=== PATIENT | female | born 1990 | race Caucasian/White ===

== ENCOUNTER 2020-12-10 19:26 | Inpatient (IN) ==
[2020-12-10] MEDS ORDERED: OXYTOCIN 30 UNITS/500 ML BAG IV PRN (19:56)
[2020-12-10] MEDS ORDERED: DEXTROSE 50% 50 ML SYRINGE IV PRN (19:56)
[2020-12-10] MEDS ORDERED: INSULIN REGULAR 250 UNITS in SODIUM CHLORIDE 0.9% 247.5 ML IV PRN (19:56)
[2020-12-10] MEDS ORDERED: LACTATED RINGER'S 1,000 ML IV PRN (19:56)
[2020-12-10] MEDS ORDERED: SODIUM CHLORIDE 0.9% 1000ML 1,000 ML IV PRN (19:56)
[2020-12-10] MEDS ORDERED: PENICILLIN G POTASSIUM 6 MU in DEXTROSE 5% 250 ML IV STA (20:05)
--- NOTE | 2020-12-10 20:15 | Labor Progress Brief Note ---
Date of Service December 10, 2020 Subjective Patient arrives for IOL due to mild preeclampsia. Diagnosed based on outpatient 24hr urine protein resulted today at 702mg, along with cHTN, plus new onset epigastric pain per patient in office yesterday. While diagnosis is not classic since she did not have a hypertensive BP measurement in the office yesterday, it is the best unifying theory for her picture of cHTN + proteinuria + symptoms at this time. She was also already indicated for delivery between 38 and 38 10/25 based on her cHTN diagnosis. Had been scheduled at 38 09/24, but will now proceed at 38 05/27 given the new issues. On arrival she has no PIH sx, no LOF, no VB, good FM, no CTX. Assessment & Plan (1) Mild preeclampsia: Plan: Admit for IOL. Will start with mihaela solis/arom in AM (2) Gestational diabetes mellitus (GDM) affecting , antepartum: Plan: On insulin at home. Initiate protocol with drips of D5 and insulin per hourly sugars. (3) Group B streptococcal carriage complicating : Plan: PCN once pitocin started or ROM occurs. Admission and Anticipated Discharge Date Admission Date: December 10, 2020 Physical Exam Physical Exam: 2/50/-2/soft/post Vtx/intact FHT Cat 1 Eek quiet to irritable Results & Data ([facility]) Vital Signs (Past 12 Hours) Vital Signs Pulse BP 12/10/20 20:04 112 H 152/82 H 12/10/20 20:03 113 H 178/77 H Coding Level of Care Code None Diagnoses Mild preeclampsia O14.00 Gestational diabetes mellitus (GDM) affecting , antepartum O24.419 Group B streptococcal carriage complicating O99.820
[2020-12-10 20:28] LABS: Hematocrit (blood only) 36.7 % (37-47); Hemoglobin 12.6 g/dL (12.0-16.0); Mean Corpuscular Hemoglobin 29.6 pg (25-34); Mean Corpuscular Hgb Conc 34.3 g/dL (32-36); Mean Corpuscular Volume 86.4 fL (80-100); Mean Platelet Volume 10.7 fL (7.4-10.4); Platelet Count 211 K/uL (130-400); RDW Coefficient of Variation 14.1 % (11.5-14.5); RDW Standard Deviation 44.3 fL (36.4-46.3); Red Blood Count 4.25 M/uL (4.2-5.4); White Blood Count 11.72 K/uL (4.8-10.8)
--- NOTE | 2020-12-10 21:41 | Procedure Note ---
Procedure Note Date of Service December 10, 2020 Note Patient was placed in L&D bed and a reactive NST was obtained. The solis bulb placement process was explained to the patient and all questions answered to her satisfaction. She was positioned in lithotomy, and a solis was prepared with a lubricated stylet and a syringe of 30cc sterile water. A gloved hand was used to identify and examine the cervix which was found to be 2/75/-2. The catheter was advanced to a point just outside the internal os, then the solis was slid forward off of the stylet and into the uterine cavity outside the amniotic sac. The stylet was removed, and the solis balloon was inflated to 30cc. The solis w as gently seated downward against the internal cervical os and clamped. The heart tones remained cat 1. Coding CPT Codes Misx Procedure Codes - 23558 Placement of cervical dilator: 66181 Placement of cervical dilator ([id number]) [facility] [place] ([place] Misx Procedure Codes 24355 Placement of cervical dilator
[2020-12-10] MEDS: ACETAMINOPHEN 325 MG TAB PO PRN (22:15)
[2020-12-10] MEDS: DEXTROSE 5% 1,000 ML IV PRN (22:35)
[2020-12-11] MEDS ORDERED: OXYTOCIN 30 UNITS/500 ML BAG IV PRN ×2 (03:42→15:21)
[2020-12-11] MEDS: ACETAMINOPHEN 325 MG TAB PO PRN ×3 (05:00→21:30)
--- NOTE | 2020-12-11 05:42 | Labor Progress Brief Note ---
Date of Service December 11, 2020 Subjective Discomfort with contractions, not wanting epidural yet but informs us she plans one. Assessment & Plan (1) Mild preeclampsia: (2) Group B streptococcal carriage complicating : (3) Insulin controlled gestational diabetes mellitus (GDM) during : Admission and Anticipated Discharge Date Admission Date: December 10, 2020 Physical Exam Physical Exam: FHT Cat 1 [place] q3-4 3/75/-2/vtx/intact Pit @ 1 Mendoza out Results & Data ([place]) Vital Signs (Past 12 Hours) Vital Signs Temp Pulse Resp BP 12/11/20 04:57 102 H 152/70 H 12/11/20 03:43 96 H 141/67 H 12/11/20 02:50 97.9 F 18 12/11/20 02:44 84 139/76 12/11/20 01:48 97 H 142/79 H 12/11/20 00:45 100 H 143/72 H 12/10/20 23:49 107 H 143/74 H 12/10/20 23:00 18 12/10/20 22:48 98.2 F 12/10/20 22:42 107 H 145/87 H 12/10/20 21:46 105 H 151/78 H 12/10/20 20:48 115 H 111/78 12/10/20 20:04 112 H 152/82 H 12/10/20 20:03 113 H 178/77 H 12/10/20 19:47 98.6 F 18 Coding Level of Care Code None Diagnoses Mild preeclampsia O14.00 Group B streptococcal carriage complicating O99.820 Insulin controlled gestational diabetes mellitus (GDM) during O24.414
[2020-12-11] MEDS: PENICILLIN G POTASSIUM 3 MU in DEXTROSE 5% 100 ML IV PRN ×2 (08:20→12:32)
[2020-12-11] MEDS ORDERED: fentaNYL 2MCG/ML ROPIVACAINE 1.25MG/ML 100 ML BAG EPI ONE (08:45)
[2020-12-11] MEDS ORDERED: fentaNYL citrate 100 MCG/2 ML VIAL ONE (08:45)
[2020-12-11] MEDS ORDERED: BUPIVACAINE 0.25% 30 ML VIAL ONE (08:45)
[2020-12-11] MEDS ORDERED: SODIUM CHLORIDE 0.9% INJ 10 ML VIAL ONE (08:45)
[2020-12-11] MEDS ORDERED: ePHEDrine sulfate 50 MG/ML AMP ONE (08:45)
--- NOTE | 2020-12-11 09:30 | Anesthesiology Consultation ---
Date of Service December 11, 2020 Assessment & Plan Chart Review Chart Review: Acceptable Risk for Labor Epidural Consults Requested none History Height/Weight Height: 5 ft 3 in Weight: 121.563 kg Allergies Allergy/AdvReac Type Severity Reaction Status Date / Time No Known Allergies Allergy Verified 12/06/20 09:26 Medications Home Medications Medication Instructions Recorded Confirmed Last Taken prenat.vits,michael,roo-jkup-keihe 1 tab PO DAILY 06/10/20 12/10/20 12/10/20 aspirin 81 mg chewable tablet 81 mg PO DAILY 07/05/20 12/10/20 12/10/20 acetone (urine) test (Ketone Urine #50 ea 08/06/20 12/06/20 Unknown Test) blood sugar diagnostic (OneTouch #150 ea 08/06/20 12/06/20 Unknown Verio test strips) blood-glucose meter (OneTouch #1 ea 08/06/20 12/06/20 Unknown Verio Flex meter) lancets 33 gauge (OneTouch Delica #150 ea 08/06/20 12/06/20 Unknown Plus Lancet) pen needle, diabetic 32 gauge x #50 ea 10/25/20 12/06/20 Unknown 32" (BD Ultra-Fine Liberty Pen Needle) insulin NPH isoph U-100 human 100 65 unit SUBCUT QPM #30 ml 11/30/20 12/10/20 12/09/20 22:00 unit/mL (3 mL) subcutaneous pen (Novolin N Flexpen) breast pump #1 ea 12/10/20 Unknown Active Medications Generic Name Dose Route Start Last Admin Trade Name Freq PRN Reason Stop Dose Admin Acetaminophen 650 mg 12/10/20 21:41 12/11/20 05:00 Acetaminophen 325 Mg Tab PO 01/09/21 21:40 650 mg Q4H PRN Administration Mild Pain Penicillin G Potassium 3 mu/ 106 mls @ 100 mls/hr 12/10/20 19:56 12/11/20 08:20 Dextrose IV 12/20/20 19:55 100 mls/hr Q4H PRN Administration Give until delivery Insulin Human Regular 250 250 mls @ 0.5 mls/hr 12/10/20 19:56 12/11/20 08:40 units/ Sodium Chloride IV 01/09/21 19:55 0.5 units/hr Q24H PRN 0.5 mls/hr BSG 80mg/dL or above Titration Protocol 0.5 UNITS/HR Dextrose 1,000 mls @ 100 mls/hr 12/10/20 19:56 12/11/20 08:40 D5w IV 01/09/21 19:55 100 mls/hr .Q10H PRN Infusion BSG 180 or below Protocol Lactated Ringer's 1,000 mls @ 125 mls/hr 12/10/20 19:56 12/11/20 08:33 Lr IV 12/12/20 19:55 0 mls/hr .Q8H PRN Infusion L&D Protocol Protocol Oxytocin 30 units in 500 mls @ 11 mls/hr 12/11/20 03:42 12/11/20 08:30 Pitocin IV 12/13/20 03:41 0.66 units/hr .Q24H PRN 11 mls/hr Labor Induction/Augmentation Titration Protocol 0.66 UNITS/HR Past Medical History Medical History (Updated 12/11/20 @ 00:30 by Joselyn Flaherty, ASIA) Spontaneous vaginal delivery [facility] 02/2016, PP HTN with this was taking Labetalol Past Family History Family History Mother Hypertension Past Surgical History Surgical History (Updated 12/11/20 @ 00:30 by Joselyn Flaherty, ASIA) S/P dilation and curettage 08/2017 S/P wisdom tooth extraction Social History Smoking Status: Never smoker Hx Alcohol Use: No Hx Substance Use: No Physical Exam Vital Signs Last Vital Signs Temp 36.6 C 12/11/20 07:09 Pulse 116 H 12/11/20 09:28 Resp 20 12/11/20 08:03 BP 142/80 H 12/11/20 09:25 Pulse Ox 98 12/11/20 09:28 Testing Laboratory Results 12/10/20 20:16 12/11/20 12/11/20 12/11/20 08:39 07:40 06:41 POC Glucose 100 H 100 H 103 H 12/11/20 12/11/20 12/11/20 05:41 04:40 03:41 POC Glucose 119 H 117 H 96 12/11/20 12/11/20 12/11/20 02:43 01:42 00:43 POC Glucose 96 97 103 H 12/10/20 12/10/20 23:42 22:33 POC Glucose 112 H 124 H
[2020-12-11] MEDS ORDERED: NALOXONE HCL 0.4 MG/1 ML VIAL/CARP IV PRN (09:45)
[2020-12-11] MEDS ORDERED: fentaNYL 2MCG/ML ROPIVACAINE 1.25MG/ML 100 ML BAG EPI PRN (09:45)
[2020-12-11] MEDS ORDERED: diphenhydrAMINE 50 MG/ML VIAL IV PRN (09:45)
[2020-12-11] MEDS ORDERED: ePHEDrine sulfate 50 MG/ML AMP IV PRN (09:45)
[2020-12-11] MEDS ORDERED: NALBUPHINE HCL INJ 10 MG/ML AMP IV PRN (09:45)
[2020-12-11] MEDS ORDERED: NALOXONE HCL 1 MG in SODIUM CHLORIDE 0.9% 1000ML 1,000 ML IV PRN (09:45)
[2020-12-11] MEDS: DEXTROSE 5% 1,000 ML IV PRN (09:59)
[2020-12-11] MEDS ORDERED: ONDANSETRON INJ 2 MG/ML 2 ML VIAL ONE (10:30)
--- NOTE | 2020-12-11 14:56 | Delivery Summary ---
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 8:30 in the morning the patient soon afterwards requested epidural after this and she had received 4 hours worth of antibiotics for group B strep prophylaxis the patient's membranes were ruptured artificially patient then progressed to fully dilated and pushed over a total of 1 contractions delivering baby in occiput anterior position loose nuchal cord passed over the head fluid was clear mouth and then nares suctioned with bulb no excessive force was used easy delivery live male vigorous infant cord clamped and cut cord gases obtained cord blood obtained placenta removed with gentle traction IV Pitocin was started small fir st-degree tear repaired with 3-0 Vicryl sponge and instrument counts were correct estimated blood loss 250 mL [facility] Vaginal Delivery Charge Vaginal Delivery Codes: 95130 global code for the antepartum, delivery, and post- Delivery Type Details: and 1st Degree LAC Procedure Anesthesia type: Epidural
[2020-12-11 15:21] LABS: Base Excess Cord Venous Blood -1.7 mEq/L (-7.7-1.9); Cord Venous Blood HCO3 24 mmol/L (18.4-26.8); Cord Venous Blood PCO2 42 mmHg (30.4-57.2); Cord Venous Blood PO2 30 mmHg (14.1-43.3); Cord Venous Blood pH 7.37 (7.20-7.44)
[2020-12-11] MEDS ORDERED: HYDROCORTISONE ACETATE 25 MG SUPP PR PRN (15:21)
[2020-12-11] MEDS ORDERED: BENZOCAINE 20% AER SPR 82.5 GM CAN EXT PRN (15:21)
[2020-12-11] MEDS ORDERED: DIPHTHERIA/TETANUS/PERTUSSIS 0.5 ML SYR/VIAL IM ONE (15:21)
[2020-12-11] MEDS ORDERED: bisacodyL 10 MG SUPP PR PRN (15:21)
[2020-12-11] MEDS ORDERED: oxyCODONE/ACETAMINOPHEN 5mg/325mg TAB PO PRN (15:21)
[2020-12-11] MEDS ORDERED: SUPERCREAM 0.870% 15 GM JAR EXT PRN (15:21)
[2020-12-11 15:26] LABS: Base Excess Cord Arterial Bld -0.1 mEq/L (-9-1.8); CO2 Cord Arterial Blood 60 mmHg (39.1-73.5); HCO3 Cord Arterial Blood 28 mmol/L (19.7-28.5); PO2 Cord Arterial Blood 11 mmHg (4.1-31.7); pH Cord Arterial Blood 7.29 (7.1-7.38)
[2020-12-11 15:32] LABS: Oxygen Sat Cord Arterial Blood < 60.0 % (<60)
--- NOTE | 2020-12-11 15:36 | Anesthesia Procedure Note ---
Date of Service December 11, 2020 Anesthesia Post Epidural Note Vital Signs Vital Signs: Temp Pulse Resp BP Pulse Ox 36.6 C 110 H 20 150/80 H 99 12/11/20 07:09 12/11/20 15:33 12/11/20 11:03 12/11/20 15:33 12/11/20 14:43 Pain Intensity Bilateral Abdomen: Pain Intensity: 0 Notes Mental Status: alert / awake / arousable Nausea / Vomiting: adequately controlled Pain: adequately controlled Airway Patency, RR, SpO2: stable & adequate BP & HR: stable & adequate Hydration State: stable & adequate Neuraxial Anesthesia: was administered and sensory block is resolving Anesthetic Complications: no major complications apparent and Pt Satisfied with anesthetic care Epidural: Removed without complications and With tip intact
[2020-12-11] MEDS: IBUPROFEN 600 MG TAB PO PRN ×2 (18:24→22:29)
[2020-12-11] MEDS: DOCUSATE SODIUM 100 MG CAP PO SCH (21:30)
[2020-12-12] MEDS ORDERED: PRENATAL VITAMIN 1 TAB PO SCH (08:00)
--- NOTE | 2020-12-12 08:27 | Obstetrical Progress Note ---
Date of Service December 12, 2020 Assessment & Plan (1) Insulin controlled gestational diabetes mellitus (GDM) during : PPD # 1 cont current care Subjective Ambulation: ambulating normally Voiding: no voiding problems Passing Gas:: Yes Diet Tolerance:: regular diet Lochia:: Small Physical Exam ext neg Results & Data ([facility]) Vital Signs (Past 12 Hours) Vital Signs Temp Pulse Resp BP Pulse Ox 12/12/20 02:30 97.9 F 94 H 18 140/94 12/11/20 23:15 97.7 F 94 H 18 121/71 96
[2020-12-12] MEDS: DOCUSATE SODIUM 100 MG CAP PO SCH (08:51)
[2020-12-12] MEDS: IBUPROFEN 600 MG TAB PO PRN ×2 (08:51→12:40)
[2020-12-12] MEDS ORDERED: bisacodyL 5 MG TABEC PO SCH (20:00)
== END 2020-12-12 15:30 | disposition home or self-care (01) | DRG 807 ==
LOC: 4S1 19:26 → 4S2 12-11 17:25

== ENCOUNTER 2022-05-04 07:26 | Inpatient (IN) ==
[2022-05-04] MEDS ORDERED: OXYTOCIN 30 UNITS/500 ML BAG IV PRN ×3 (07:35→18:32)
[2022-05-04] MEDS ORDERED: LIDOCAINE 1% LOCAL 20 ML VIAL INFIL PRN (07:35)
[2022-05-04] MEDS ORDERED: PENICILLIN G POTASSIUM 6 MU in DEXTROSE 5% 250 ML IV ONE (07:45)
[2022-05-04] MEDS: LACTATED RINGER'S 1,000 ML IV PRN ×3 (08:13→16:38)
[2022-05-04 09:04] LABS: Hematocrit (blood only) 34.8 % (34.1-44.9); Hemoglobin 11.8 g/dl (12.0-16.0); Mean Corpuscular Hemoglobin 29.9 pg (25.0-34.0); Mean Corpuscular Hgb Conc 33.9 g/dL (32.0-36.0); Mean Corpuscular Volume 88.3 fL (80.0-100.0); Mean Platelet Volume 10.2 fL (9.4-12.3); Platelet Count 206 K/uL (130-400); RDW Coefficient of Variation 14.6 % (11.5-14.5); RDW Standard Deviation 45.7 fL (36.4-46.3); Red Blood Count 3.94 M/uL (3.93-5.22); White Blood Count 11.19 K/ul (4.8-10.8)
--- NOTE | 2022-05-04 09:44 | History & Physical Report ---
Date of Service May 04, 2022 Assessment & Plan (1) Insulin controlled gestational diabetes mellitus (GDM) during : (2) GBS (group B Streptococcus carrier), +RV culture, currently : Plan 31 yo at 39 1/7 wga presents for IOL for A2GDM VSS Fetus cat 1 Labor - will start pit. Discussed suspected macrosomia but not projected out to >4500g. Discussed potential impact on labor and pushing curves, would need to be judicious w/ vacuum if considering due to risk of shoulder and pt verbalized understanding A2GDM - initial BG elevated due to waffle, repeat 1hr later improved. Will ocntinue to monitor GBS+, pcn ordered epidural prn Admission and Anticipated Discharge Date Admission Date: May 04, 2022 History of Present Illness Chief Complaint: IOL Primary Care Provider: NO PCP 31 yo at 39 1/7 wga presents for IOL for A2GDM. 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: G1 2015 at 42 wks G2 2019 SAB G3 2020 at 38 wks G4 current q28-30d cycles denies hx STIs 01/2021 neg cyto Allergies Allergy/AdvReac Type Severity Reaction Status Date / Time No Known Allergies Allergy Verified 05/03/22 14:04 Home Medications Medication Instructions Recorded Confirmed Type prenat.vits,michael,jdx-wcew-htahs 1 tab PO DAILY 06/10/20 05/03/22 History acetone (urine) test (Ketone Urine #50 ea 10/28/21 05/03/22 Rx Test strips) blood sugar diagnostic (OneTouch #150 ea 10/28/21 05/03/22 Rx Verio test strips) lancets 33 gauge (OneTouch Delica #150 ea 10/28/21 05/03/22 Rx Plus Lancet) pen needle, diabetic 32 gauge x #100 ea 12/28/21 05/03/22 Rx 5/32" (BD Ultra-Fine Liberty Pen Needle) insulin syringe-needle U-100 1 mL #50 ea 01/26/22 05/03/22 Rx 32 gauge x 5/16" (True Comfort Pro Ins Syringe) aspirin 81 mg tablet,delayed 81 mg PO DAILY 03/29/22 05/03/22 History release (Adult Low Dose Aspirin) docusate sodium [Colace] PO 03/29/22 05/03/22 History insulin NPH isoph U-100 human 100 180 unit subcut QPM 05/04/22 05/04/22 History unit/mL subcutaneous suspension (Novolin N NPH U-100 Insulin isophane) Patient History Medical History (Updated 05/04/22 @ 09:10 by Delvin Dean MD) Gestational diabetes Gestational proteinuria History of chicken pox Mild preeclampsia Obesity Spontaneous vaginal delivery [facility] 02/2016, PP HTN with this was taking Labetalol Surgical History History of cryosurgery S/P dilation and curettage 08/2017 S/P wisdom tooth extraction Family History (Updated 09/14/21 @ 14:11 by Evangelina Fournier) Mother Hypertension Thyroid disease Grandmother (Paternal) Breast cancer Grandmother (Maternal) Diabetes Heart disease Rheumatoid arthritis Denies family history of Ovarian cancer Colorectal cancer Social History (Updated 09/14/21 @ 14:12 by Evangelina Fournier) Smoking Status: Never smoker Hx Alcohol Use: No Hx Substance Use: No Preferred Language: Dutch Communication Ability: Effective Job Foreman Required: No Beliefs That Will Affect Care: None marital status: marital status details: DICK Blue (30) [phone] Current Living Situation: Spouse and Family Current Living Situation Comment: house with dick with son and step daughter, no pets current occupational status: employed 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 @ [employer] Feels Safe at Home: Yes Safety Concerns: Feels Safe At This Time Assistive Devices: None Physical Exam Genitourinary: OB Exam Abdomen: + vertex and + estimated weight (8-9) Manual OB Exam: + cervical dilation (2-3), + cervical effacement 50% and + station -2 OB Exam Monitor Tracing: + external FHT monitor used, + external uterine monitor used (irritability) and + category I (150/mod/+accel/-decel) Results & Data ([facility]) Vital Signs (Past 12 Hours) Vital Signs Temp Resp 05/04/22 07:30 98.8 F 18 Laboratory Results OB Labs: Blood Type A Positive 09/21/21 Antibody Screen NEGATIVE 09/21/21 Hemoglobin 12.9 g/dl (12.0-16.0) 02/15/22 Hematocrit 36.6 % (34.1-44.9) 02/15/22 Mean Corpuscular Volume 89.6 fL (80-100) 09/21/21 Platelet Count 295 K/uL (130-400) 09/21/21 Rubella IgG Antibody Immune (Immune) 09/21/21 Rapid Plasma Reagin Nonreactive (Nonreactive) 09/21/21 Hepatitis B Surface Antigen Neg (Neg) 06/17/20 Hepatitis B Surface Antigen. NON-REACTIVE (NON-REACTIVE) 09/21/21 Hepatitis C Antibody (EIA) NON-REACTIVE (NON-REACTIVE) 09/21/21 HIV (1&2) Ab and P24 Ag, 4th Gener Neg (Neg) 06/17/20 HIV (1&2) Ag and Ab Confirmation NON-REACTIVE (NON-REACTIVE) 09/21/21 Glucose 1 Hour 50 gm Load 134 mg/dl (70-130) H 07/05/20 OB Optional Labs: Chlamydia trachomatis RNA NOT DETECTED (NOT DETECTED) 09/21/21 Neisseria gonorrhoeae RNA NOT DETECTED (NOT DETECTED) 09/21/21 Thyroid Stimulating Hormone (TSH) 1.150 uIu/ml (0.300-4.500) 08/06/20 Labs Reviewed: declines quad/afp - sln GBS+ Diagnostic Findings 04/12 EFW 3416g, 95%, post plac Coding Level of Care Code None Diagnoses Insulin controlled gestational diabetes mellitus (GDM) during O24.414 GBS (group B Streptococcus carrier), +RV culture, currently O99.820
[2022-05-04] MEDS ORDERED: ePHEDrine sulfate 50 MG/ML AMP ONE (11:56)
[2022-05-04] MEDS ORDERED: fentaNYL citrate 100 MCG/2 ML VIAL ONE (11:56)
[2022-05-04] MEDS ORDERED: LIDOCAINE 2%/EPINEPHRINE 1:200,000 20 ML SDV ONE (11:57)
[2022-05-04] MEDS ORDERED: BUPIVACAINE 0.25% 30 ML VIAL ONE (11:57)
[2022-05-04] MEDS ORDERED: SODIUM CHLORIDE 0.9% INJ 10 ML VIAL ONE (11:57)
[2022-05-04] MEDS ORDERED: fentaNYL 2MCG/ML ROPIVACAINE 1.25MG/ML 100 ML BAG EPI ONE (11:57)
[2022-05-04] MEDS: PENICILLIN G POTASSIUM 3 MU in DEXTROSE 5% 100 ML IV PRN ×2 (12:03→17:13)
[2022-05-04] MEDS ORDERED: ePHEDrine sulfate 50 MG/ML AMP IV PRN (12:24)
[2022-05-04] MEDS ORDERED: ONDANSETRON INJ 2 MG/ML 2 ML VIAL IV PRN (12:24)
[2022-05-04] MEDS ORDERED: NALOXONE HCL 1 MG in SODIUM CHLORIDE 0.9% 1000ML 1,000 ML IV PRN (12:24)
[2022-05-04] MEDS ORDERED: diphenhydrAMINE 50 MG/ML VIAL IV PRN (12:24)
[2022-05-04] MEDS ORDERED: NALOXONE HCL 0.4 MG/1 ML VIAL/CARP IV PRN (12:24)
[2022-05-04] MEDS ORDERED: fentaNYL 2MCG/ML ROPIVACAINE 1.25MG/ML 100 ML BAG EPI PRN (12:24)
[2022-05-04] MEDS ORDERED: NALBUPHINE HCL INJ 10 MG/ML AMP IV PRN (12:24)
--- NOTE | 2022-05-04 12:27 | Anesthesiology Consultation ---
Date of Service May 04, 2022 Assessment & Plan Chart Review Chart Review: Patient NOT seen in Pre Admission Testing and Acceptable Risk for Labor Epidural Consults Requested none ASA ASA3 Proposed Anesthesia Anesthesia Type: Labor Epidural and CSE Risk / Benefits Reviewed With: PT / POA / Parent / Guardian, Accepts Plan and Informed Consent Obtained History Height/Weight Height: 5 ft 3 in Weight: 115.666 kg Allergies Allergy/AdvReac Type Severity Reaction Status Date / Time No Known Allergies Allergy Verified 05/03/22 14:04 Medications Home Medications Medication Instructions Recorded Confirmed Last Taken prenat.vits,michael,uxt-nrof-plkcr 1 tab PO DAILY 06/10/20 05/03/22 12/10/20 acetone (urine) test (Ketone Urine #50 ea 10/28/21 05/03/22 Unknown Test strips) blood sugar diagnostic (OneTouch #150 ea 10/28/21 05/03/22 Unknown Verio test strips) lancets 33 gauge (OneTouch Delica #150 ea 10/28/21 05/03/22 Unknown Plus Lancet) pen needle, diabetic 32 gauge x #100 ea 12/28/21 05/03/22 Unknown 5/32" (BD Ultra-Fine Liberty Pen Needle) insulin syringe-needle U-100 1 mL #50 ea 01/26/22 05/03/22 Unknown 32 gauge x 5/16" (True Comfort Pro Ins Syringe) aspirin 81 mg tablet,delayed 81 mg PO DAILY 03/29/22 05/03/22 1 Day Ago release (Adult Low Dose Aspirin) ~05/03/22 docusate sodium [Colace] PO 03/29/22 05/03/22 1 Day Ago ~05/03/22 insulin NPH isoph U-100 human 100 180 unit subcut QPM 05/04/22 05/04/22 1 Day Ago unit/mL subcutaneous suspension ~05/03/22 (Novolin N NPH U-100 Insulin isophane) Active Medications Generic Name Dose Route Start Last Admin Trade Name Freq PRN Reason Stop Dose Admin Lactated Ringer's 1,000 mls @ 125 mls/hr 05/04/22 07:35 05/04/22 12:26 Lr IV 05/06/22 07:34 500 mls/hr .Q8H PRN Administration L&D Protocol Protocol Penicillin G Potassium 3 mu/ 106 mls @ 100 mls/hr 05/04/22 10:35 05/04/22 12:03 Dextrose IV 05/14/22 10:34 100 mls/hr Q4H PRN Administration GBS(+) Until Delivery Oxytocin 30 units in 500 mls @ 8 mls/hr 05/04/22 07:46 05/04/22 11:16 Pitocin IV 05/06/22 07:45 0.48 units/hr .Q24H PRN 8 mls/hr Labor Induction/Augmentation Titration Protocol 0.48 UNITS/HR NPO Date Last Intake of Fluids: 05/04/22 Time Last Intake of Fluids: 10:00 Date Last Intake of Solids: 05/04/22 Time Last Intake of Solids: 07:00 Past Medical History Medical History Gestational diabetes Gestational proteinuria History of chicken pox Mild preeclampsia Obesity Spontaneous vaginal delivery [facility] 02/2016, PP HTN with this was taking Labetalol Exercise / Class Metabolic Activity II 4-5 Yardwork/Stairs/Walk up hill Past Family History Family History Mother Hypertension Thyroid disease Grandmother (Paternal) Breast cancer Grandmother (Maternal) Diabetes Heart disease Rheumatoid arthritis Denies family history of Ovarian cancer Colorectal cancer Past Surgical History Surgical History History of cryosurgery S/P dilation and curettage 08/2017 S/P wisdom tooth extraction Past Anesthesia History No Hx of Anesthesia Complications and No Family Hx of Anesthesia Complications History of PONV No Hx of PONV and No Hx of Motion Sickness Social History Smoking Status: Never smoker Hx Alcohol Use: No Hx Substance Use: No Review of Systems no chest pain or sob Physical Exam Vital Signs Last Vital Signs Temp 37.1 C 05/04/22 07:30 Pulse 103 H 05/04/22 12:22 Resp 18 05/04/22 07:30 BP 130/65 05/04/22 12:10 Pulse Ox 100 05/04/22 12:22 ENMT Mouth: no TMJ abnormality Thyromental Distance: > or= 3.5 Finger Breadths Mallampati Class: II Neck normal visual inspection Respiratory normal respiratory effort Auscultation: lungs clear to auscultation bilaterally Cardiovascular Rate/Rhythm: regular rate and regular rhythm Musculoskeletal Spine: normal cervical ROM Neurologic moves all extremities Psychiatric Orientation: alert and oriented x 3 Testing Laboratory Results 05/04/22 08:44 05/04/22 05/04/22 05/04/22 12:08 11:04 10:02 POC Glucose 77 78 109 H 05/04/22 05/04/22 09:06 07:51 POC Glucose 164 H 196 H
--- NOTE | 2022-05-04 13:40 | Labor Progress Brief Note ---
Date of Service May 04, 2022 Subjective Comfortable w/ epidural Assessment & Plan (1) Insulin controlled gestational diabetes mellitus (GDM) during : (2) GBS (group B Streptococcus carrier), +RV culture, currently : Plan 31 yo at 39 1/7 wga presents for IOL for A2GDM VSS Fetus cat 1 Labor - pit at 14, now s/p arom. Small fluid seen, will recheck and make sure all membranes ruptured on next check A2GDM - BG wnl GBS+, pcn ordered epidural in place Admission and Anticipated Discharge Date Admission Date: May 04, 2022 Physical Exam Genitourinary: Manual OB Exam: + cervical dilation (3-4), + cervical effacement 50%, + station -2 and + amniotic fluid (attempted arom but difficult, believe to have gotten it w/ clear fluid) OB Exam Monitor Tracing: + external FHT monitor used, + external uterine monitor used (irritability) and + category I (140-145/mod/+accel/-decel) Results & Data ([facility]) Vital Signs (Past 12 Hours) Vital Signs Temp Pulse Resp BP Pulse Ox 05/04/22 13:33 104 H 129/70 05/04/22 13:18 112 H 137/79 05/04/22 13:04 111 H 132/82 05/04/22 12:47 100 05/04/22 12:47 104 H 05/04/22 12:47 108 H 135/67 05/04/22 12:45 107 H 140/67 05/04/22 12:42 98 H 100 05/04/22 12:43 100 H 146/75 H 05/04/22 12:41 95 H 135/104 H 05/04/22 12:39 113 H 137/95 05/04/22 12:37 117 H 100 05/04/22 12:32 102 H 100 05/04/22 12:31 104 H 160/96 H 05/04/22 12:27 104 H 100 05/04/22 12:22 103 H 100 05/04/22 12:10 101 H 130/65 05/04/22 10:46 102 H 140/89 05/04/22 07:30 98.8 F 18 Coding Level of Care Code None Diagnoses Insulin controlled gestational diabetes mellitus (GDM) during O24.414 GBS (group B Streptococcus carrier), +RV culture, currently O99.820
--- NOTE | 2022-05-04 15:42 | Labor Progress Brief Note ---
Date of Service May 04, 2022 Subjective Comfortable w/ epidural Assessment & Plan (1) Insulin controlled gestational diabetes mellitus (GDM) during : (2) GBS (group B Streptococcus carrier), +RV culture, currently : Plan 31 yo at 39 1/7 wga presents for IOL for A2GDM VSS Fetus cat 1 Labor - pit at 16, good progress so think arom was complete earlier A2GDM - BG wnl GBS+, pcn ordered epidural in place Admission and Anticipated Discharge Date Admission Date: May 04, 2022 Physical Exam Genitourinary: Manual OB Exam: + cervical dilation (4-5), + cervical effacement 50% and + station -2 OB Exam Monitor Tracing: + external FHT monitor used, + external uterine monitor used (q4) and + category I (135/mod/+accel/-decel) Results & Data ([facility]) Vital Signs (Past 12 Hours) Vital Signs Temp Pulse Resp BP Pulse Ox 05/04/22 14:49 110 H 131/73 05/04/22 14:33 106 H 135/70 05/04/22 14:17 112 H 131/73 05/04/22 14:04 100 H 134/71 05/04/22 13:48 107 H 122/58 L 05/04/22 13:33 104 H 129/70 05/04/22 13:18 112 H 137/79 05/04/22 13:04 111 H 132/82 05/04/22 12:47 100 05/04/22 12:47 104 H 05/04/22 12:47 108 H 135/67 05/04/22 12:45 107 H 140/67 05/04/22 12:42 98 H 100 05/04/22 12:43 100 H 146/75 H 05/04/22 12:41 95 H 135/104 H 05/04/22 12:39 113 H 137/95 05/04/22 12:37 117 H 100 05/04/22 12:32 102 H 100 05/04/22 12:31 104 H 160/96 H 05/04/22 12:27 104 H 100 05/04/22 12:22 103 H 100 05/04/22 12:10 101 H 130/65 05/04/22 10:46 102 H 140/89 05/04/22 07:30 98.8 F 18 Coding Level of Care Code None Diagnoses Insulin controlled gestational diabetes mellitus (GDM) during O24.414 GBS (group B Streptococcus carrier), +RV culture, currently O99.820
--- NOTE | 2022-05-04 17:43 | Delivery Summary ---
Vaginal Delivery Summary Date of Service May 04, 2022 Vaginal Delivery Summary [facility] PREOPERATIVE DIAGNOSIS: 1. Single intrauterine at 39 1/7 wga 2. A2GDM 3. GBS+ POSTOPERATIVE DIAGNOSIS: 1. Single intrauterine at 39 1/7 wga 2. A2GDM 3. GBS+ 4. Delivered PROCEDURE: 1. Normal spontaneous vaginal delivery. SURGEON: Aaliyah Brewster MD ANESTHESIA: Epidural. ESTIMATED BLOOD LOSS: 300 mL FLUIDS: Continuous LR. URINE OUTPUT: None. COMPLICATIONS: None. CONDITION: Stable. INDICATIONS: 31 yo at 39 1/7 wga presented for IOL for A2GDM. She was started on penicillin for GBS ppx and pitocin for induction. She received an epidural for pain control and AROM. She progressed to complete and desired to push. FINDINGS: A viable male infant, weight pending with Apgars of 9 and 9 at 1 and 5 minutes respectively. SPECIMEN: Cord blood OPERATIVE REPORT: The patient progressed to 10 cm, 100% effaced and +2 station, pushed once over intact perineum with anesthesia to deliver a viable male , weight and Apgars as above. Head of delivered in LILLIAM position. No nuchal cord was present. Body and shoulders were delivered without difficulty. was delivered to maternal abdomen and nursing staff. Delayed cord clamping was performed for 60 seconds. Cord was clamped and cut. Cord blood was obtained. Placenta delivered spontaneously intact with 3-vessel cord. IV oxytocin and fundal massage were given for excellent hemostasis. Vagina, cervix, perineum, and placenta were inspected. A hemostatic abrasion at the introitus and a hemostatic periurethral were noted but not needed to be repaired. There was excellent hemostasis. Sponge and needle counts correct x2. No sponges were left behind. Mother and stable in immediate period. [facility] [place] Vaginal Delivery Charge Vaginal Delivery Codes: 25937 global code for the antepartum, delivery, and post- Delivery Type Details: [facility]
--- NOTE | 2022-05-04 17:48 | Anesthesia Procedure Note ---
Date of Service May 04, 2022 Anesthesia Post Epidural Note Vital Signs Vital Signs: Temp Pulse Resp BP Pulse Ox 36.6 C 115 H 17 142/71 H 100 05/04/22 15:35 05/04/22 17:33 05/04/22 15:35 05/04/22 17:33 05/04/22 12:47 Notes Mental Status: alert / awake / arousable and participated in evaluation Nausea / Vomiting: adequately controlled Pain: adequately controlled Airway Patency, RR, SpO2: stable & adequate BP & HR: stable & adequate Hydration State: stable & adequate Neuraxial Anesthesia: was administered and sensory block is resolving Anesthetic Complications: no major complications apparent and Pt Satisfied with anesthetic care Epidural: Removed without complications and With tip intact
[2022-05-04] MEDS ORDERED: BENZOCAINE 20% AER SPR 82.5 GM CAN EXT PRN (18:32)
[2022-05-04] MEDS ORDERED: DIPHTHERIA/TETANUS/PERTUSSIS 0.5 ML SYR/VIAL IM ONE (18:32)
[2022-05-04] MEDS ORDERED: HYDROCORTISONE ACETATE 25 MG SUPP PR PRN (18:32)
[2022-05-04] MEDS ORDERED: ACETAMINOPHEN 325 MG TAB PO PRN (18:32)
[2022-05-04] MEDS ORDERED: bisacodyL 10 MG SUPP PR PRN (18:32)
[2022-05-04] MEDS: IBUPROFEN 600 MG TAB PO PRN (19:15)
[2022-05-04] MEDS: DOCUSATE SODIUM 100 MG CAP PO SCH (21:36)
[2022-05-05] MEDS: IBUPROFEN 600 MG TAB PO PRN ×3 (00:49→11:32)
--- NOTE | 2022-05-05 04:50 | Obstetrical Progress Note ---
Date of Service May 05, 2022 Assessment & Plan (1) care following vaginal delivery: (2) GBS (group B Streptococcus carrier), +RV culture, currently : Plan - Overall, feeling well and eating well today - Infant feeding going well without concern - Urinating and stooling appropriately - Ambulating well - Pain controlled w/ Ibuprofen and Tylenol - Hgb 11.8 on 05/04 - Vitals stable - Routine PP care progressing well - Anticipate discharge today - Recommending f/u outpatient in 6 weeks Admission and Anticipated Discharge Date Admission Date: May 04, 2022 Supervising Physician Co-Signing Physician Notes Resident Physician Supervision Note: I interviewed and examined the patient. Discussed with Dr. Guzman and agree with findings and plan as documented in the note. Any exceptions or clarifications are listed here: PP1 s/p doing well. VSS, exam benign and wnl. Desires d/c home today, stable to do so after 24 hrs Documented By: Aaliyah Brewster MD Subjective Patient is a 31 y/o female who is PPD #1 following vaginal delivery at 39w1d. She reports feeling well overall this morning and wants to go home. - Ambulation - well throughout room - Voiding/Mendoza - independent voids, no dysuria or pressure - Gas/Stool - passing gas, no bowel movement - Diet - regular, no nausea or emesis - Lochia - diminishing, light amount - Infant Feeding Type - breast feeding - Pain Level - 3/10, controlled with Ibuprofen and Tylenol Review of Systems - Denies fever, chills, sweats - Denies shortness of breath, difficulty breathing, chest pain, palpitations, chest pressure. - Denies breast pain. - Denies dysuria. - Denies headache or changes in vision. Physical Exam Physical Exam: General: Alert, oriented. No acute distress. Cardiac: RRR, normal S1/S2, no murmurs/rubs/gallops. Respiratory: Non-labored, CTAB, no wheezes/rales/rhonchi. Symmetric chest rise. Abdomen: Soft, nontender, nondistended. Bowel sounds present. Uterus: Uterine fundus firm, palpable 3 cm below umbilicus. Lower Extremities: No lower extremity edema or swelling. No deep calf pain. Stephanie's negative bilaterally. Results & Data ([facility]) Vital Signs (Past 12 Hours) Vital Signs Temp Pulse Pulse Resp BP BP Pulse Ox 05/05/22 01:00 36.6 C 100 H 18 127/87 97 05/04/22 21:30 36.8 C 100 H 18 124/84 97 05/04/22 18:36 36.9 C 18 05/04/22 19:35 115 H 165/64 H 05/04/22 19:19 100 H 147/81 H 05/04/22 18:50 73 152/96 H 05/04/22 18:35 90 149/80 H 05/04/22 18:19 100 H 158/81 H 05/04/22 18:05 104 H 153/90 H 05/04/22 17:50 108 H 141/84 H 05/04/22 17:33 115 H 142/71 H O2 Del Method 05/05/22 01:00 Room Air 05/04/22 21:30 Room Air 05/04/22 18:36 05/04/22 19:35 05/04/22 19:19 05/04/22 18:50 05/04/22 18:35 05/04/22 18:19 05/04/22 18:05 05/04/22 17:50 05/04/22 17:33 Resident Activity Tracking Resident Involvement: Resident Care Provided Care Provided: OB Delivery
[2022-05-05] MEDS ORDERED: PRENATAL VITAMIN 1 TAB PO SCH (08:00)
[2022-05-05] MEDS ORDERED: FERROUS SULFATE 325 MG TAB PO SCH (08:00)
[2022-05-05] MEDS: DOCUSATE SODIUM 100 MG CAP PO SCH (08:25)
[2022-05-05] MEDS ORDERED: bisacodyL 5 MG TABEC PO SCH (20:00)
== END 2022-05-05 18:57 | disposition home or self-care (01) | DRG 807 ==
LOC: 4S1 07:26 → 4E2 18:52 → 4S1 19:09 → 4E2 21:23
DX: O99.824 Streptococcus B carrier state complicating childbirth; Z3A.39 39 weeks gestation of pregnancy; O24.424 Gestational diabetes mellitus in childbirth, insulin controlled; Z37.0 Single live birth; Z83.3 Family history of diabetes mellitus